=== PATIENT | male | born 1990 | race African-American/Black ===

== ENCOUNTER 2021-03-15 04:17 | Emergency (ER) | payer MEDICAID ==
[~2021-03-15] VITALS: Ht 213.4 cm; Wt 209.0 kg
[2021-03-15 05:33] LABS: BASOPHILS % 1.2 % (0.0-2.0); EOSINOPHILS % 2.4 % (0.0-5.0); HEMATOCRIT. 34.7 % (42.0-52.0); LYMPHOCYTES % 29.5 % (20.0-50.0); MEAN CORPUSCULAR HEMOGLOBIN 21.9 pg (28.0-32.0); MEAN CORPUSCULAR VOLUME 69.2 fL (80.0-94.0); MEAN PLATELET VOLUME 7.8 fl (7.4-10.4); NEUTROPHILS % 59.9 % (40.0-76.0); PLATELET 407 x1000/uL (130-400); RED BLOOD CELL COUNT 5.01 mill/uL (4.7-6.1); RED CELL DISTRIBUTION WIDTH 15.1 % (11.6-14.6)
[2021-03-15 05:41] LABS: CHLORIDE 102 mEq/L (98-107)
[2021-03-15] MEDS ORDERED: ACETAMINOPHEN 325MG TABLET PO ONE (06:00)
[2021-03-15 06:27] VITALS: BP 145/85
[2021-03-15] MEDS ORDERED: FUROSEMIDE 20MG TABLET PO SCH (06:30)
[2021-03-15 07:56] LABS: PLATELET ESTIMATE SLIGHTLY INCREASED
== END 2021-03-15 07:10 | disposition home or self-care (01) ==
LOC: ER 04:17
DX: R60.9 Edema, unspecified (principal); I10 Essential (primary) hypertension; Z68.42 Body mass index [BMI] 45.0-49.9, adult
CPT/HCPCS: 36415; 80053; 83880; 84484; 85025; 93005; 99284